=== PATIENT | male | born 1970 | race African-American/Black ===

== ENCOUNTER 2019-06-03 19:40 | Emergency (ER) | payer SELFPAY ==
[2019-06-03 20:08] VITALS: BP 98/69; PULSE 105; TEMP 98.2; BMI 22.2
--- NOTE | 2019-06-03 20:45 | PDOC ---
History of Present Illness - General Chief Complaint: Cold Symptoms Stated Complaint: COUGHING Time Seen by Provider: 06/03/19 20:44 History Source: Patient - History of Present Illness Initial Comments: 06/03/19 20:50 Chief complaint: Cough Patient 49-year-old male without any medical problems who states he has been coughing for a week. Not sure if he has been running a fever but no fever today. Patient concerned because cough is not getting better and may be getting a little worse. Patient does not smoke patient does not appear acutely ill. No recent travel GENERAL/CONSTITUTIONAL: No fever, weakness. dizziness HEAD, EYES, EARS, NOSE AND THROAT: No change in vision. No ear pain or discharge. No sore throat. CARDIOVASCULAR: No chest pain RESPIRATORY: No shortness of breath +cough GASTROINTESTINAL: No pain, nausea, vomiting, diarrhea or constipation GENITOURINARY: No dysuria MUSCULOSKELETAL: No neck or back pain SKIN: No rash NEUROLOGIC: No headache, vertigo, loss of consciousness, or loss of sensation. GENERAL: The patient is awake, alert, and fully oriented, in no acute distress. HEAD: Normal with no signs of trauma. EYES: Pupils equal, round and reactive to light, sclera anicteric, conjunctiva clear. ENT: pharynx: no erythema, no exudate, uvula midline NECK: supple CHEST: clear, nontender, rr ABD: soft, nontender BACK: no tenderness or signs of injury EXTREMITIES: Normal range of motion, no edema. NEUROLOGICAL: Normal speech, normal gait. SKIN: Warm, Dry 06/03/19 20:51 Past History - Past Medical History Allergies/Adverse Reactions: Allergies Allergy/AdvReac Type Severity Reaction Status Date / Time No Known Allergies Allergy Verified 06/03/19 20:05 Home Medications: Ambulatory Orders Azithromycin [Zithromax -] 250 mg PO UTDICT #6 tab 06/03/19 Benzonatate [Tessalon Pearls -] 200 mg PO TID #42 cap 06/03/19 COPD: No Other medical history: Pt denies - Psycho Social/Smoking Cessation Hx Smoking History: Never smoked Have you smoked in the past 12 months: No Information on smoking cessation initiated: No Hx Alcohol Use: No Drug/Substance Use Hx: No *Physical Exam - Vital Signs Last Vital Signs Temp Pulse Resp BP Pulse Ox 98.2 F 105 H 20 98/69 96 06/03/19 20:05 06/03/19 20:05 06/03/19 20:05 06/03/19 20:05 06/03/19 20:05 Medical Decision Making - Medical Decision Making 06/03/19 20:51 49-year-old male, healthy with cough for 1 week, discussed with patient of treating cough versus chest x-ray. Patient would like to get a chest x-ray. Increased markings on chest x-ray, will treat as discussed prior to chest x-ray with Z-Mckinley and Tessalon Perles given length of symptoms and worsening of symptoms, patient has no wheezing. Cough is not frequent or out of control Discussed issues, findings, results, applicable medications and treatments and follow-up. All these were understood and all questions were answered 06/03/19 22:35 Discharge - Discharge Information Problems reviewed: Yes Clinical Impression/Diagnosis: Bronchitis Condition: Stable Disposition: HOME - Admission No - Additional Discharge Information Prescriptions: Azithromycin [Zithromax -] 250 mg PO UTDICT #6 tab Benzonatate [Tessalon Pearls -] 200 mg PO TID #42 cap - Follow up/Referral - Patient Discharge Instructions Patient Printed Discharge Instructions: DI for Acute Bronchitis Additional Instructions: Drink 2-3 L of water daily Take Tylenol 650 mg every 4 hours or Motrin 600 mg every 6 hours for fever and pain Take the Zithromax as directed until finished. Take the Tessalon Perles as directed for cough Return to the nearest ER if short of breath, unable to swallow or feeling sicker Followup with your doctor in one to 2 days - Post Discharge Activity
== END 2019-06-03 21:45 | disposition home or self-care (01) ==
LOC: JERFT 19:40
DX: J40 Bronchitis, not specified as acute or chronic (principal)
CPT/HCPCS: 71046-TC-FY; 99282-25